=== PATIENT | female | born 1960 | race Asian ===

== ENCOUNTER 2018-08-12 22:25 | Emergency (ER) | payer BC, OTHER ==
[~2018-08-12] VITALS: Ht 149.9 cm; Wt 56.7 kg
[~2018-08-12 22:25] MED LIST: ACHD5005 PO; AMLO5TAB2 PO; CYAN50TA PO; MAGN100T3 PO; MAGN400T6 PO
--- OUTSIDE RECORDS SUMMARY | 2018-08-12 22:31 | XMS REPORT | Continuity of Care Document ---
Author Author [facility] Organization [facility] Address Unknown Phone Unavailable Allergies Active Description Code Type Severity Reaction Onset Reported/Identified Relationship to Patient Clinical Status Yes No Known Drug Allergies [id number] Drug Allergy Unknown N/A 12/03/2013 Medications There is no data. Problems Date Dx Coded Attending Type Code Diagnosis Diagnosed By 12/09/2013 DIOGO PORTILLO, GEOVANNA Quevedo Ot 214.1 LIPOMA SKIN NEC 12/09/2013 DIOGO PORTILLO, GEOVANNA Quevedo Ot 401.9 HYPERTENSION NOS 12/09/2013 DIOGO PORTILLO, GEOVANNA Quevedo Ot V58.69 OTH MED,LT,CURRENT USE 07/31/2014 JOSUE HICKMAN MD Ot 610.0 07/31/2014 JOSUE HICKMAN MD Ot 719.41 07/31/2014 JOSUE HICKMAN MD Ot 729.89 07/31/2014 JOSUE HICKMAN MD Ot 719.61 07/31/2014 JOSUE HICKMAN MD Ot 719.61 07/31/2014 DIOGO PORTILLO, GEOVANNA Quevedo Ot 214.9 07/31/2014 GEOVANNA LIND MD Ot V72.83 07/31/2014 GEOVANNA LIND MD Ot V74.8 07/03/2016 BONITA SOSA [employer]OR TEAM LEADER Ot R05 COUGH 07/03/2016 BONITA SOSA SAL[employer] FLOOR TEAM LEADER Ot R06.02 SHORTNESS OF BREATH 07/04/2016 JOSUE HICKMAN MD Ot 719.61 JOINT SYMPTOM NEC-SHLDER 07/04/2016 JOSUE HICKMAN MD Ot 719.61 JOINT SYMPTOM NEC-SHLDER 07/04/2016 DIOGO PORTILLO, GEOVANNA Quevedo Ot 214.9 LIPOMA NOS 07/04/2016 GEOVANNA LIND MD Ot V72.83 EXAM PRE-OPERATIVE NEC 07/04/2016 DIOGO PORTILLO, GEOVANNA Quevedo Ot V74.8 SCREEN-BACTERIAL DIS NEC 07/04/2016 JOSUE HICKMAN MD Ot V76.12 OTH SCREEN MAMMO-MALIGN NEOPLASM OF LEONARDO 07/04/2016 BONITA SOSA R SALES FLOOR TEAM LEADER Ot 611.71 MASTODYNIA 07/04/2016 MARIZA SOSAN R SALES FLOOR TEAM LEADER Ot R05 COUGH 07/04/2016 MARIZA SOSAN R SALES FLOOR TEAM LEADER Ot R06.02 SHORTNESS OF BREATH 07/04/2016 MARIZA SOSAN R SALES FLOOR TEAM LEADER Ot R05 COUGH 07/04/2016 MARIZA SSOAN R SALES FLOOR TEAM LEADER Ot R06.02 SHORTNESS OF BREATH 07/04/2016 ARACELIS LOVETTEN L Ot R05 COUGH 07/04/2016 GINGER LOVETT Ot R07.9 CHEST PAIN, UNSPECIFIED 07/05/2016 GINGER LOVETT L Ot R05 COUGH 07/05/2016 GINGER LOVETT Ot R07.9 CHEST PAIN, UNSPECIFIED 07/26/2016 ABDIEL MURRELL MD Ot E11.9 TYPE 2 DIABETES MELLITUS WITHOUT COMPLIC 07/26/2016 ABDIEL MURRELL MD Ot I10 ESSENTIAL (PRIMARY) HYPERTENSION 07/26/2016 ABDIEL MURRELL MD J Ot R00.2 PALPITATIONS 07/26/2016 ABDIEL MURRELL MD Ot R07.9 CHEST PAIN, UNSPECIFIED 08/07/2016 ABDIEL MURRELL MD Ot E11.9 TYPE 2 DIABETES MELLITUS WITHOUT COMPLIC 08/07/2016 ABDIEL MURRELL MD Ot I10 ESSENTIAL (PRIMARY) HYPERTENSION 08/07/2016 ABDIEL MURRELL MD Ot R00.2 PALPITATIONS 08/07/2016 ABDIEL MURRELL MD Ot R07.9 CHEST PAIN, UNSPECIFIED 08/21/2016 ABDIEL MURRELL MD Ot E11.9 TYPE 2 DIABETES MELLITUS WITHOUT COMPLIC 08/21/2016 ABDIEL MURRELL MD J Ot I10 ESSENTIAL (PRIMARY) HYPERTENSION 08/21/2016 ABDIEL MURRELL MD Ot R00.2 PALPITATIONS 08/21/2016 ABDIEL MURRELL MD Ot R07.9 CHEST PAIN, UNSPECIFIED 08/28/2016 ABDIEL MURRELL MD Ot E11.9 TYPE 2 DIABETES MELLITUS WITHOUT COMPLIC 08/28/2016 ABDIEL MURRELL MD Ot I10 ESSENTIAL (PRIMARY) HYPERTENSION 08/28/2016 ABDIEL MURRELL MD Ot R00.2 PALPITATIONS 08/28/2016 ABDIEL MURRELL MD Ot R07.9 CHEST PAIN, UNSPECIFIED 07/25/2018 VICK PORTILLO, JOSUE Jacobson Ot 719.61 JOINT SYMPTOM NEC-SHLDER 07/25/2018 JOSUE HICKMAN MD Ot 719.61 JOINT SYMPTOM NEC-SHLDER 07/25/2018 DIOGO PORTILLO, GEOVANNA Quevedo Ot 214.9 LIPOMA NOS 07/25/2018 DIOGO PORTILLO, GEOVANNA Quevedo Ot V72.83 EXAM PRE-OPERATIVE NEC 07/25/2018 DIOGO PORTILLO, GEOVANNA Quevedo Ot V74.8 SCREEN-BACTERIAL DIS NEC 07/25/2018 VICK PORTILLO, JOSUE Jacobson Ot V76.12 OTH SCREEN MAMMO-MALIGN NEOPLASM OF ELONARDO 07/25/2018 BONITA SOSA SAL[employer]OR TEAM LEADER Ot 611.71 MASTODYNIA 07/25/2018 BONITA SOSA SALES FLOOR TEAM LEADER Ot R05 COUGH 07/25/2018 BONITA SOSA SAL[employer] FLOOR TEAM LEADER Ot R06.02 SHORTNESS OF BREATH 07/25/2018 GINGER LOVETT Ot R05 COUGH 07/25/2018 GINGER LOVETT Ot R07.9 CHEST PAIN, UNSPECIFIED 07/25/2018 ABDIEL MURRELL MD Ot E11.9 TYPE 2 DIABETES MELLITUS WITHOUT COMPLIC 07/25/2018 ABDIEL MURRELL MD Ot I10 ESSENTIAL (PRIMARY) HYPERTENSION 07/25/2018 ABDIEL MURRELL MD Ot R00.2 PALPITATIONS 07/25/2018 ABDIEL MURRELL MD Ot R07.9 CHEST PAIN, UNSPECIFIED 07/25/2018 ABDIEL MURRELL MD Ot E11.9 TYPE 2 DIABETES MELLITUS WITHOUT COMPLIC 07/25/2018 ABDIEL MURRELL MD Ot I10 ESSENTIAL (PRIMARY) HYPERTENSION 07/25/2018 ABDIEL MURRELL MD Ot R00.2 PALPITATIONS 07/25/2018 ABDIEL MURRELL MD Ot R07.9 CHEST PAIN, UNSPECIFIED 07/25/2018 ABDIEL MURRELL MD Ot E11.9 TYPE 2 DIABETES MELLITUS WITHOUT COMPLIC 07/25/2018 ABDIEL MURRELL MD Ot I10 ESSENTIAL (PRIMARY) HYPERTENSION 07/25/2018 ABDIEL MURRELL MD Ot R00.2 PALPITATIONS 07/25/2018 ABDIEL MURRELL MD Ot R07.9 CHEST PAIN, UNSPECIFIED 07/30/2018 JOSUE HICKMAN MD Ot 719.61 JOINT SYMPTOM NEC-SHLDER 07/30/2018 JOSUE HICKMAN MD Ot 719.61 JOINT SYMPTOM NEC-SHLDER 07/30/2018 DIOGO PORTILLO, GEOVANNA Quevedo Ot 214.9 LIPOMA NOS 07/30/2018 DIOGO PORTILLO, GEOVANNA Quevedo Ot V72.83 EXAM PRE-OPERATIVE NEC 07/30/2018 DIOGO PORTILLO, GEOVANNA Quevedo Ot V74.8 SCREEN-BACTERIAL DIS NEC 07/30/2018 VICK PORTILLO, JOSUE Jacobson Ot V76.12 OTH SCREEN MAMMO-MALIGN NEOPLASM OF LEONARDO 07/30/2018 BONITA SOSA SAL[employer] FLOOR TEAM LEADER Ot 611.71 MASTODYNIA 07/30/2018 BONITA SOSA SALES FLOOR TEAM LEADER Ot R05 COUGH 07/30/2018 BONITA SOSA SALES FLOOR TEAM LEADER Ot R06.02 SHORTNESS OF BREATH 07/30/2018 GINGER LOVETT Ot R05 COUGH 07/30/2018 GINGER LOVETT Ot R07.9 CHEST PAIN, UNSPECIFIED 07/30/2018 ABDIEL MURRELL MD Ot E11.9 TYPE 2 DIABETES MELLITUS WITHOUT COMPLIC 07/30/2018 ABDIEL MURRELL MD Ot I10 ESSENTIAL (PRIMARY) HYPERTENSION 07/30/2018 ABDIEL MURRELL MD Ot R00.2 PALPITATIONS 07/30/2018 ABDIEL MURRELL MD Ot R07.9 CHEST PAIN, UNSPECIFIED 07/30/2018 ABDIEL MURRELL MD Ot E11.9 TYPE 2 DIABETES MELLITUS WITHOUT COMPLIC 07/30/2018 ABDIEL MURRELL MD Ot I10 ESSENTIAL (PRIMARY) HYPERTENSION 07/30/2018 ABDIEL MURRELL MD Ot R00.2 PALPITATIONS 07/30/2018 ABDIEL MURRELL MD Ot R07.9 CHEST PAIN, UNSPECIFIED 07/30/2018 ABDIEL MURRELL MD Ot E11.9 TYPE 2 DIABETES MELLITUS WITHOUT COMPLIC 07/30/2018 ABDIEL MURRELL MD Ot I10 ESSENTIAL (PRIMARY) HYPERTENSION 07/30/2018 ABDIEL MURERLL MD Ot R00.2 PALPITATIONS 07/30/2018 ABDIEL MURRELL MD Ot R07.9 CHEST PAIN, UNSPECIFIED Procedures There is no data. Results Test Result Range Complete blood count (CBC) with automated white blood cell (WBC) differential - 07/03/16 13:33 Blood leukocytes automated count (number/volume) 6.5 10*3/uL 4.3-11.0 Blood erythrocytes automated count (number/volume) 4.94 10*6/uL 4.35-5.85 Venous blood hemoglobin measurement (mass/volume) 14.5 g/dL 11.5-16.0 Blood hematocrit (volume fraction) 44 % 35-52 Automated erythrocyte mean corpuscular volume 89 [foz_us] 80-99 Automated erythrocyte mean corpuscular hemoglobin (mass per erythrocyte) 29 pg 25-34 Automated erythrocyte mean corpuscular hemoglobin concentration measurement ( mass/volume) 33 g/dL 32-36 Automated erythrocyte distribution width ratio 12.9 % 10.0-14.5 Automated blood platelet count (count/volume) 411 10*3/uL 130-400 Automated blood platelet mean volume measurement 9.0 [foz_us] 7.4-10.4 Automated blood neutrophils/100 leukocytes 58 % 42-75 Automated blood lymphocytes/100 leukocytes 31 % 12-44 Blood monocytes/100 leukocytes 7 % 0-12 Automated blood eosinophils/100 leukocytes 4 % 0-10 Automated blood basophils/100 leukocytes 1 % 0-10 Blood neutrophils automated count (number/volume) 3.8 10*3 1.8-7.8 Blood lymphocytes automated count (number/volume) 2.0 10*3 1.0-4.0 Blood monocytes automated count (number/volume) 0.5 10*3 0.0-1.0 Automated eosinophil count 0.2 10*3/uL 0.0-0.3 Automated blood basophil count (count/volume) 0.0 10*3/uL 0.0-0.1 Comprehensive metabolic panel - 07/03/16 13:33 Serum or plasma sodium measurement (moles/volume) 142 mmol/L 135-145 Serum or plasma potassium measurement (moles/volume) 4.3 mmol/L 3.6-5.0 Serum or plasma chloride measurement (moles/volume) 107 mmol/L 98-107 Carbon dioxide 24 mmol/L 21-32 Serum or plasma anion gap determination (moles/volume) 11 mmol/L 5-14 Serum or plasma urea nitrogen measurement (mass/volume) 10 mg/dL 7-18 Serum or plasma creatinine measurement (mass/volume) 0.84 mg/dL 0.60-1.30 Serum or plasma urea nitrogen/creatinine mass ratio 12 NRG Serum or plasma creatinine measurement with calculation of estimated glomerular filtration rate > NRG Serum or plasma glucose measurement (mass/volume) 103 mg/dL 70-105 Serum or plasma calcium measurement (mass/volume) 9.2 mg/dL 8.5-10.1 Serum or plasma total bilirubin measurement (mass/volume) 0.7 mg/dL 0.1-1.0 Serum or plasma alkaline phosphatase measurement (enzymatic activity/volume) 89 U/L 40-136 Serum or plasma aspartate aminotransferase measurement (enzymatic activity/ volume) 18 U/L 5-34 Serum or plasma alanine aminotransferase measurement (enzymatic activity/volume ) 22 U/L 0-55 Serum or plasma protein measurement (mass/volume) 7.7 g/dL 6.4-8.2 Serum or plasma albumin measurement (mass/volume) 4.3 g/dL 3.2-4.5 Serum or plasma creatine kinase measurement (enzymatic activity/volume) - 07/03 13:33 Serum or plasma creatine kinase measurement (enzymatic activity/volume) 94 U/L 29-168 Serum or plasma creatine kinase MB measurement (enzymatic activity/volume) - 13:33 Serum or plasma creatine kinase MB measurement (enzymatic activity/volume) 0.6 ng/mL <6.6 Serum or plasma troponin i.cardiac measurement (mass/volume) - 07/03/16 13:33 Serum or plasma troponin i.cardiac measurement (mass/volume) < ng/ mL <0.30 Myoglobin, serum - 07/03/16 13:33 Myoglobin, serum 25.9 ng/mL 10.0-92.0 Encounters ACCT No. Visit Date/Time Discharge Status Pt. Type Provider Facility Loc./Unit Complaint [id number] 08/27/2016 08:55:00 08/27/2016 23:59:59 CLS Outpatient ABDIEL MURRELL MD [facility] CARD CHEST PAIN [id number] 08/06/2016 08:45:00 08/06/2016 23:59:59 CLS Outpatient ABDIEL MURRELL MD [facility] CARD CHEST PAIN SYNDROME [id number] 07/25/2016 12:27:00 07/25/2016 23:59:59 CLS Outpatient ABDIEL MURRELL MD [facility] LAB CP,PALPITATION,HTN [id number] 07/03/2016 13:26:00 07/03/2016 23:59:59 CLS Outpatient GINGER LOVETT [facility] CARD CHEST PAIN,COUGH [id number] 07/02/2016 17:17:00 07/02/2016 23:59:59 CLS Outpatient BONITA SOSA SALES FLOOR TEAM LEADER [facility] RAD COUGH,SOA [id number] 01/19/2015 13:58:00 01/19/2015 23:59:59 CLS Outpatient BONITA SOSA SALES [employer]LOOR TEAM LEADER [facility] RAD LEFT BREAST PAIN [id number] 01/18/2015 10:57:00 01/18/2015 23:59:59 CLS Outpatient JOSUE HICKMAN MD [facility] RAD SCREENING [id number] 12/09/2013 07:46:00 12/09/2013 12:48:00 DIS Outpatient GEOVANNA LIND MD [facility] SDC LIPOMA [id number] 12/03/2013 09:50:00 12/03/2013 23:59:59 CLS Outpatient GEOVANNA LIND MD [facility] PREOP LIPOMA [id number] 10/29/2013 14:42:00 10/29/2013 23:59:59 CLS Outpatient JOSUE HICKMAN MD [facility] RAD SHOULDER MASS [id number] 10/20/2013 09:57:00 10/20/2013 23:59:59 CLS Outpatient JOSUE HICKMAN MD [facility] RAD SHOULDER MASS [id number] 10/12/2013 09:56:00 10/12/2013 23:59:59 CLS Outpatient JOSUE HICKMAN MD [facility] RAD [id number] 09/28/2013 12:36:00 09/28/2013 23:59:59 CLS Outpatient JOSUE HICKMAN MD [facility] RAD [id number] 01/19/2015 13:59:11 ACT Document Registration
[2018-08-12] MEDS ORDERED: METF-397 (22:50)
[2018-08-12] MEDS ORDERED: methylPREDNISolone 125 MG (Solu-MEDROL) VIAL IV STA (22:56)
[2018-08-12 23:00] LABS: BASOPHILS % (AUTO) 1 % (0-10); EOSINOPHILS # (AUTO) 0.2 10^3/uL (0.0-0.3); EOSINOPHILS % (AUTO) 3 % (0-10); HEMATOCRIT 45 % (35-52); HEMOGLOBIN 15.1 G/DL (11.5-16.0); LYMPHOCYTES # (AUTO) 2.8 X 10^3 (1.0-4.0); LYMPHOCYTES % (AUTO) 35 % (12-44); MEAN CORPUSCULAR HEMOGLOBIN 30 PG (25-34); MEAN CORPUSCULAR HGB CONC 34 G/DL (32-36); MEAN CORPUSCULAR VOLUME 89 FL (80-99); MEAN PLATELET VOLUME 8.9 FL (7.4-10.4); MONOCYTES # (AUTO) 0.6 X 10^3 (0.0-1.0); MONOCYTES % (AUTO) 8 % (0-12); NEUTROPHILS # (AUTO) 4.3 X 10^3 (1.8-7.8); NEUTROPHILS % (AUTO) 54 % (42-75); PLATELET COUNT 447 10^3/uL (130-400); RED BLOOD COUNT 5.02 10^6/uL (4.35-5.85); RED CELL DISTRIBUTION WIDTH 13.2 % (10.0-14.5)
[2018-08-12] MEDS ORDERED: diphenhydrAMINE 25 MG TAB (BENADRYL) PO ONE (23:00)
[2018-08-12 23:12] LABS: MAGNESIUM 2.4 MG/DL (1.8-2.4)
[2018-08-12 23:14] LABS: INR 0.9 (0.8-1.4)
[2018-08-12 23:19] LABS: ALANINE AMINOTRANSFERASE 15 U/L (0-55); ALBUMIN 4.7 GM/DL (3.2-4.5); ALKALINE PHOSPHATASE 91 U/L (40-136); BUN/CREATININE RATIO 9; CALCIUM 9.8 MG/DL (8.5-10.1); CARBON DIOXIDE 23 MMOL/L (21-32); CHLORIDE 104 MMOL/L (98-107); CREATININE SERUM 0.77 MG/DL (0.60-1.30); GFR ESTIMATED > 60; GLUCOSE 99 MG/DL (70-105); POTASSIUM 4.1 MMOL/L (3.6-5.0); SODIUM 140 MMOL/L (135-145); TOTAL PROTEIN 8.5 GM/DL (6.4-8.2)
[2018-08-12 23:39] LABS: TSH (THYROID ANALYZER) 1.88 UIU/ML (0.35-4.94)
[2018-08-13] MEDS ORDERED: cefTRIAXone FOR IV USE 2,000 MG in NS (IVPB) 50 ML IV ONE (00:15)
[2018-08-13] MEDS ORDERED: CIPR3.5O OP ×2 (00:30→00:44)
[2018-08-13] MEDS ORDERED: CEFD300C3 PO ×2 (00:30→00:44)
[2018-08-13] MEDS ORDERED: RX-CIPROFLOXACIN (CILOXAN) 0.3% OP SOLN 2.5 ML OP STA (00:31)
--- NOTE | 2018-08-13 00:31 | ED General ---
General Chief Complaint: General Problems/Pain Stated Complaint: SWOLLEN L EYE Nursing Triage Note: c/o swollen left eye. reports tachycardia, palpatations earlier this pm. Nursing Sepsis Screen: No Definite Risk Source of Information: Patient Exam Limitations: No Limitations History of Present Illness Date Seen by Provider: Aug 12, 2018 Time Seen by Provider: 22:45 Initial Comments PT ARRIVES VIA POV FROM HOME C/O SWELLING TO LEFT EYE AREA AROUND 2000 TONIGHT, AND NOW EYE IS SWOLLEN SHUT. NO PAIN WITH MOVEMENT OF EYE NO PAIN TO EYEBALL ITSELF DENIES ANY DRAINAGE OR TEARING FROM EYE. DENIES RECENT SYMPTOMS OF EYE INFECTION NO FEVER NO RECENT URI/SINUS SYMPTOMS DENIES PRIOR EYE PROBLEMS AND HAS ROUTINE APPOINTMENT WITH DR. MICHEL NEXT SATURDAY PT STATES AROUND 2000 TONIGHT SHE HAD A BRIEF EPISODE OF SOME PALPITATIONS AND CHEST TIGHTNESS, LASTED LESS THAN 10 MINUTES AND HAS NOT RETURNED. STATES SHE TOOK 2 - 81 MG ASPIRIN AT THAT TIME AND THINKS SHE RUBBED HER EYE AND THAT IS WHAT CAUSED HER EYE TO SWELL, BUT POSSIBLY JUST NOTICED AT THAT TIME THAT HER EYE WAS SWOLLEN. NO SIGNIFICANT SHORTNESS OF BREATH WITH THE EPISODE, BUT MAYBE HER BREATHING WAS A LITTLE "HEAVY" FOR A SHORT PERIOD OF TIME NO SWEATS NO NAUSEA/VOMITING HAS CHRONIC LEG SWELLING AND IS NO DIFFERENT TONIGHT THAN NORMAL NO COUGH STATES SHE HAS HAD SIMILAR EPISODE OF PALPITATIONS AND CHEST TIGHTNESS ONCE IN THE PAST WHEN SHE WAS UNDER ALOT OF STRESS, AND ADMITS TO ALOT OF STRESS RECENTLY. PT IS DIABETIC AND HAS HISTORY OF HTN AND HYPERLIPIDEMIA. SHE QUIT TAKING HER MEDICATIONS FOR BOTH . STATES SHE STILL TAKES HER DIABETIC MEDICATIONS. PCP: DR. HICKMAN Allergies and Home Medications Allergies Coded Allergies: No Known Drug Allergies (Unverified , 12/03/13) Home Medications Cefdinir 300 Mg Capsule, 300 MG PO BID Prescribed by: SURJIT CESPEDES on 08/13/1843 Ciprofloxacin HCl 3.5 Gm Oint...g., 3.5 GM OP TID Prescribed by: SURJIT CESPEDES on 08/13/1843 Patient Home Medication List Home Medication List Reviewed: Yes Review of Systems Review of Systems Constitutional: no symptoms reported; No chills, No dizziness, No fever EENTM: see HPI; No blurred vision, No double vision, No eye pain, No tearing, No vision loss, No nose congestion Respiratory: no symptoms reported Cardiovascular: see HPI, chest pain, palpitations Gastrointestinal: no symptoms reported; No nausea, No vomiting Genitourinary: no symptoms reported Musculoskeletal: no symptoms reported Skin: no symptoms reported Psychiatric/Neurological: See HPI, Anxiety; Denies Headache, Denies Numbness, Denies Paresthesia, Denies Seizure, Denies Tingling, Denies Weakness Hematologic/Lymphatic: No Symptoms Reported Immunological/Allergic: no symptoms reported Past Meojohn-Hnxlvm-Sbcvzq Hx Patient Social History Alcohol Use: Denies Use Recreational Drug Use: No Smoking Status: Never a Smoker 2nd Hand Smoke Exposure: No Recent Foreign Travel: No Contact w/Someone Who Travel: No Recent Infectious Disease Expo: No Recent Hopitalizations: No Immunizations Up To Date Tetanus Booster (TDap): Unknown Date of Influenza Vaccine: Jun 16, 2013 Seasonal Allergies Seasonal Allergies: No Past Medical History Surgeries: Yes (D&C) Gallbladder Respiratory: No Cardiac: Yes High Cholesterol, Hypertension Neurological: No : No DEPUTY OF COUNTER INTELLIGENCE History: Menopausal Genitourinary: No Gastrointestinal: No Musculoskeletal: No Endocrine: Yes Diabetes, Non-Insulin dep HEENT: No Cancer: No Psychosocial: No Integumentary: No Blood Disorders: No Physical Exam Vital Signs Vital Signs - First Documented 08/12/18 22:40 Temp 97.9 Pulse 111 Resp 18 B/P (MAP) 143/99 (114) Pulse Ox 98 O2 Delivery Room Air Capillary Refill : Less Than 3 Seconds Height, Weight, BMI Height: 4'11.00" Weight: 125lbs. oz. 56.340099nr; BMI Method:Stated General Appearance: No Apparent Distress, WD/WN Eyes: Left Eye Lid Inflammation (LEFT EYE SWOLLEN SHUT, WITH MILD ERYTHEMA TO UPPER LID. SLIGHTLY TENDER. EYE ITSELF SLIGHTLY INJECTED. NO DRAINAGE OR TEARING. NO PAIN WITH EYE MOVEMENT. ); Bilateral Eye PERRL, Bilateral Eye EOMI HEENT: TMs Normal, Normal ENT Inspection, Pharynx Normal, Other (NO NASAL CONGESTION OR DRAINAGE. NO SINUS TENDERNESS. ) Neck: Full Range of Motion, Normal Inspection, Non Tender, Supple Respiratory: Normal Breath Sounds, No Accessory Muscle Use, No Respiratory Distress Cardiovascular: Regular Rate, Rhythm, No JVD, No Murmur, Normal Peripheral Pulses Gastrointestinal: Soft Back: Normal Inspection Extremity: Normal Capillary Refill, Normal Range of Motion, Non Tender, No Calf Tenderness, Pedal Edema (1-2+ EDEMA BILATERALLY. ) Neurologic/Psychiatric: Alert, Oriented x3, No Motor/Sensory Deficits, Normal Mood/Affect, medical reception specialist II-XII Norm as Tested Skin: Normal Color, Warm/Dry Lymphatic: No Adenopathy Progress/Results/Core Measures Suspected Sepsis Recent Fever Within 48 Hours: No Infection Criteria Present: None New/Unexplained Altered Menta: No Sepsis Screen: No Definite Risk SIRS Temperature:97.9 Pulse: 111 Respiratory Rate: 18 Laboratory Tests 08/12/18 22:50: White Blood Count 8.0 Blood Pressure 143 /99 Mean: 114 Laboratory Tests 08/12/18 22:50: Creatinine 0.77, INR Comment 0.9, Platelet Count 447H, Total Bilirubin 1.0 Results/Orders Lab Results Laboratory Tests Test 08/12/18 22:50 Range/Units White Blood Count 8.0 4.3-11.0 10^3/uL Red Blood Count 5.02 4.35-5.85 10^6/uL Hemoglobin 15.1 11.5-16.0 G/DL Hematocrit 45 35-52 % Mean Corpuscular Volume 89 80-99 FL Mean Corpuscular Hemoglobin 30 25-34 PG Mean Corpuscular Hemoglobin Concent 34 32-36 G/DL Red Cell Distribution Width 13.2 10.0-14.5 % Platelet Count 447 H 130-400 10^3/uL Mean Platelet Volume 8.9 7.4-10.4 FL Neutrophils (%) (Auto) 54 42-75 % Lymphocytes (%) (Auto) 35 12-44 % Monocytes (%) (Auto) 8 0-12 % Eosinophils (%) (Auto) 3 0-10 % Basophils (%) (Auto) 1 0-10 % Neutrophils # (Auto) 4.3 1.8-7.8 X 10^3 Lymphocytes # (Auto) 2.8 1.0-4.0 X 10^3 Monocytes # (Auto) 0.6 0.0-1.0 X 10^3 Eosinophils # (Auto) 0.2 0.0-0.3 10^3/uL Basophils # (Auto) 0.0 0.0-0.1 10^3/uL Prothrombin Time 12.0 L 12.2-14.7 SEC INR Comment 0.9 0.8-1.4 Activated Partial Thromboplast Time 36 H 24-35 SEC Sodium Level 140 135-145 MMOL/L Potassium Level 4.1 3.6-5.0 MMOL/L Chloride Level 104 98-107 MMOL/L Carbon Dioxide Level 23 21-32 MMOL/L Anion Gap 13 5-14 MMOL/L Blood Urea Nitrogen 7 7-18 MG/DL Creatinine 0.77 0.60-1.30 MG/DL Estimat Glomerular Filtration Rate > 60 BUN/Creatinine Ratio 9 Glucose Level 99 70-105 MG/DL Calcium Level 9.8 8.5-10.1 MG/DL Corrected Calcium 8.5-10.1 MG/DL Magnesium Level 2.4 1.8-2.4 MG/DL Total Bilirubin 1.0 0.1-1.0 MG/DL Aspartate Amino Transf (AST/SGOT) 18 5-34 U/L Alanine Aminotransferase (ALT/SGPT) 15 0-55 U/L Alkaline Phosphatase 91 40-136 U/L Troponin I < 0.30 <0.30 NG/ML Total Protein 8.5 H 6.4-8.2 GM/DL Albumin 4.7 H 3.2-4.5 GM/DL TSH [place] Testing 1.88 0.35-4.94 UIU/ML My Orders Orders - SURJIT CESPEDES DO Saline Lock/Iv-Start (08/12/18 22:43) Monitor-Rhythm Ecg Trace Only (08/12/18 22:43) Cbc With Automated Diff (08/12/18 22:43) Comprehensive Metabolic Panel (08/12/18 22:43) Magnesium (08/12/18 22:56) Protime With Inr (08/12/18 22:56) Partial Thromboplastin Time (08/12/18 22:56) Thyroid Analyzer (08/12/18 22:56) Troponin I (08/12/18 22:56) Ct Maxillofacial Wo (08/12/18 22:56) Chest Pa/Lat (2 View) (08/12/18 22:56) Methylprednisolone Sod Succ (Solu-Medrol (08/12/18 22:56) Diphenhydramine Tablet (Benadryl Tablet) (08/12/18 23:00) Ceftriaxone For Iv Use (Rocephin For I (08/13/18 00:15) Rx-Ciprofloxacin Ophth Soln (Rx-Ciloxan (08/13/18 00:31) Medications Given in ED Current Medications Medications Dose Ordered Sig/Eleonora Route Start Time Stop Time Status Last Admin Dose Admin Ceftriaxone Sodium 2000 mg/ Sodium Chloride 70 ml @ 100 mls/hr ONCE ONCE IV 08/13/18 00:15 08/13/18 00:45 DC 08/13/18 00:34 100 MLS/HR Diphenhydramine HCl 50 mg ONCE ONCE PO 08/12/18 23:00 08/12/18 23:01 DC 08/12/18 23:02 50 MG Vital Signs/I&O 08/12/18 08/13/18 22:40 00:46 Temp 97.9 98.0 Pulse 111 66 Resp 18 18 B/P (MAP) 143/99 (114) 132/94 (107) Pulse Ox 98 98 O2 Delivery Room Air Room Air Capillary Refill : Less Than 3 Seconds Blood Pressure Mean: 114 Progress Note : Progress Note MILD DECREASE IN SWELLING ON DISMISSAL. PT HAD NO COMPLAINTS DURING ER STAY Diagnostic Imaging Comments CT MAXILLOFACIALS--LEFT PRESEPTAL PERIORBITAL CELLULITIS, WITH PROBABLE LACRIMAL INFLAMMATION--PER [facility] VIA FAX @ [phone] Reviewed: Reviewed by Me Departure Impression Primary Impression: Periorbital cellulitis of left eye Additional Impressions: NIDDM BRIEF EPISODE OF PALPITATIONS AND CHEST PAIN -POSSIBLY STRESS RELATED Disposition: 01 HOME, SELF-CARE Condition: Stable Departure-Patient Inst. Referrals: NAVA MICHEL OD, JOHN D MD (PCP/Family) Primary Care Physician Patient Instructions: PERIORBITAL CELLULITIS Add. Discharge Instructions: COOL COMPRESSES TO LEFT EYE AREA AT 20 MINUTE INTERVALS ELEVATE HEAD OF BED 45 DEGREES FOLLOW UP WITH DR. HICKMAN OR DR MICHEL IN 2-3 DAYS FOR FURTHER CARE, RETURN TO ER IF WORSE All discharge instructions reviewed with patient and/or family. Voiced understanding. Scripts Ciprofloxacin HCl (Ciloxan) 3.5 Gm Oint...g. 3.5 GM OP TID, #1 TUBE Prov: SURJIT CESPEDES DO 08/13/18 Cefdinir (Cefdinir) 300 Mg Capsule 300 MG PO BID for FOR INFECTION, #20 CAP Prov: SURJIT CESPEDES DO 08/13/18 SURJIT CESPEDES DO Aug 13, 2018 00:31
[2018-08-13 00:46] VITALS: BP 132/94
--- NOTE | 2018-08-13 07:19 | Diagnostic Imaging Report ---
CHEST PA/LAT (2 VIEW) Indication: Heart palpitations. Comparison: 07/02/2016. Findings: No focal pneumonic consolidation, pleural effusion or pneumothorax. Normal heart size and pulmonary vasculature. Numerous surgical clips are present left axilla from lymph node dissection. Impression: No acute cardiopulmonary process. Dictated by: Dictated on workstation # [id number]
--- NOTE | 2018-08-13 07:35 | Diagnostic Imaging Report ---
PROCEDURE: CT maxillofacial without contrast. TECHNIQUE: Multiple contiguous axial images were obtained through the facial bones without the use of intravenous contrast. INDICATION: Left eye swelling. No known injury. COMPARISON: None available. FINDINGS: There is extensive preseptal left periorbital soft tissue swelling and/or edema. No post septal extension of edema/inflammation is appreciated. Specifically, the orbital fat remains pristine. Globes are symmetric without rupture. Extraocular muscles are also symmetric. There is no acute fracture within the mid face. No osseous erosions are appreciated. Osseous nasal septum is intact with leftward deviation. Paranasal sinuses and nasal cavity are clear. Mastoid air cells are also clear. IMPRESSION: 1. Left preseptal periorbital soft tissue swelling is likely due to cellulitis. No post septal extension of infection/inflammation. 2. Findings are in agreement with the preliminary report. Dictated by: Dictated on workstation # [id number]
== END 2018-08-13 00:45 | disposition home or self-care (01) ==
LOC: EDUNIT# 22:25 → ER 22:27
DX: L03.213 Periorbital cellulitis (principal); E11.9 Type 2 diabetes mellitus without complications; R00.2 Palpitations; R07.89 Other chest pain; E78.00 Pure hypercholesterolemia, unspecified; I10 Essential (primary) hypertension
CPT/HCPCS: 36415; 70486; 71046; 80053; 83735; 84443; 84484; 85025; 85610; 85730; 93041